=== PATIENT | male | born 1990 | race Two or more races ===

== ENCOUNTER 2019-03-31 09:24 | Outpatient (CLI) | payer OTHER | END 2019-03-31 11:24 | disposition home or self-care (01) | LOC: LAB 09:24 | DX: E03.8 Other specified hypothyroidism (principal); E78.2 Mixed hyperlipidemia; E11.9 Type 2 diabetes mellitus without complications; I10 Essential (primary) hypertension; M81.0 Age-related osteoporosis without current pathological fracture; M54.5 Low back pain ==

== ENCOUNTER 2019-09-07 08:24 | Outpatient (CLI) | payer OTHER | END 2019-09-07 08:38 | disposition home or self-care (01) | LOC: LAB 08:24 | DX: E55.9 Vitamin D deficiency, unspecified (principal) ==